=== PATIENT | female | born 1945 | race African-American/Black ===

== ENCOUNTER 2021-08-02 08:35 | Inpatient (IN) | payer OTHER ==
[2021-08-02] MEDS ORDERED: MIDAZOLAM IN 0.9 % SOD.CHLORID 1 MG/1 ML PLAST..BAG ONE (08:42)
[2021-08-02] MEDS ORDERED: MIDAZOLAM HCL 5 MG/1 ML Single Dose Vial IVPUSH ONE ×2 (08:48→09:37)
[2021-08-02] MEDS ORDERED: AMIODARONE IN DEXTROSE,ISO-OSM 360 MG/200 ML BAG IVPB ONE (09:01)
[2021-08-02] MEDS ORDERED: AMIODARONE IN DEXTROSE,ISO-OSM 150 MG/100 ML BAG IVPB ONE (09:15)
[2021-08-02] MEDS ORDERED: SODIUM CHLORIDE 500 ML IV STA ×3 (09:24→11:41)
[2021-08-02] MEDS ORDERED: PIPERACILLIN/TAZOB 3.375 GM 3.375 GM in DEXTROSE 5%-WATER - 50 ML IVPB ONE (09:29)
[2021-08-02 09:30] LABS: BASO % 0.2 % (0-2.0); EOS % 2.1 % (0-4.5); HEMATOCRIT 41.4 % (32.4-45.2); HEMOGLOBIN 12.9 GM/dL (10.7-15.3); LYMPH % 32.4 % (8-40); MCH 30.4 pg (25.7-33.7); MCHC 31.3 g/dl (32.0-36.0); MEAN CELL VOLUME 97.1 fl (80-96); MEAN PLT VOLUME 8.1 fl (7.5-11.1); MONO % 5.6 % (3.8-10.2); NEUT % 59.7 % (42.8-82.8); PLATELET COUNT 366 10^3/uL (134-434); RBC 4.26 M/mm3 (3.60-5.2)
[2021-08-02] MEDS ORDERED: MIDAZOLAM HCL 2 MG/2 ML SINGLE DOSE VIAL ONE (09:38)
[2021-08-02 09:39] LABS: INR 0.97 (0.83-1.09); PROTHROMBIN TIME (PATIENT) 10.9 SEC (9.7-13.0)
[2021-08-02 09:42] LABS: ACTIVATED PTT 24.9 SECONDS (25.2-36.5)
[2021-08-02 09:48] LABS: VENOUS BASE EXCESS -7.7 mmol/L (-2-2); VENOUS O2 SATURATION 86.4 % (70-80)
[2021-08-02 09:53] LABS: CALCIUM 8.3 mg/dL (8.5-10.1)
[2021-08-02 09:54] LABS: ALBUMIN 2.8 g/dl (3.4-5.0); BLOOD UREA NITROGEN 19.3 mg/dL (7-18); MAGNESIUM 3.3 mg/dL (1.8-2.4)
[2021-08-02 09:58] LABS: CREATININE 1.7 mg/dL (0.55-1.3)
[2021-08-02 09:59] LABS: BILIRUBIN,TOTAL 0.5 mg/dL (0.2-1); TOT PROT 7.3 g/dl (6.4-8.2)
[2021-08-02] MEDS ORDERED: LORazepam 2 MG/ML SDV VIAL ONE (10:00)
[2021-08-02] MEDS ORDERED: PROPOFOL 1,000,000 MCG/100 ML VIAL ONE (10:00)
[2021-08-02] MEDS ORDERED: LORazepam 2 MG/ML SDV VIAL IVPUSH ONE (10:03)
[2021-08-02 10:06] LABS: LACTIC ACID 12.9 mmol/L (0.4-2.0)
[2021-08-02 10:15] LABS: VENOUS PH 7.117 (7.310-7.410)
[2021-08-02 10:16] LABS: VENOUS PCO2 73.1 mmHg (38-52)
[2021-08-02 10:19] LABS: ARTERIAL BLD GAS O2 SATURATION 85.2 % (95-98); ARTERIAL BLOOD GAS BASE EXCESS -2.5 mmol/L (-2-2); ARTERIAL BLOOD GAS PO2 57.4 mmHg (80-100); ARTERIAL BLOOD GAS pH 7.263 (7.350-7.450)
[2021-08-02 10:20] LABS: ALLENS TEST POSITIVE
[2021-08-02 10:21] LABS: VENT MODE AC; VENT RATE 22
[2021-08-02] MEDS ORDERED: PIPERACILLIN/TAZOB 3.375 GM 3.375 GM/50 ML BAG IVPB ONE (10:36)
[2021-08-02] MEDS ORDERED: KCL 10 MEQ IVPB 10 MEQ/100 ML INFUS.BAG IVPB ONE ×2 (10:36→11:57)
[2021-08-02] MEDS: KCL 10 MEQ IVPB 10 MEQ/100 ML INFUS.BAG IVPB SCH ×3 (10:40→19:36)
[2021-08-02] MEDS ORDERED: MIDAZOLAM 100 MG in SODIUM CHLORIDE 100 ML IVPB SCH (11:15)
[2021-08-02] MEDS ORDERED: MIDAZOLAM IN 0.9 % SOD.CHLORID 100 MG/100 ML PLAST..BAG IVPB SCH (11:30)
[2021-08-02] MEDS: NOREPINEPHRINE BITARTRATE 16,000 MCG in SODIUM CHLORIDE 484 ML IV SCH (11:40)
[2021-08-02] MEDS: PROPOFOL 1,000,000 MCG/100 ML VIAL IVPB SCH ×2 (12:05→17:10)
[2021-08-02] MEDS ORDERED: fentaNYL CITRATE 250 MCG/5 ML VIAL ONE (13:26)
[2021-08-02] MEDS: FENTANYL NS IVPB 500 MCG/100 ML BAG IVPB SCH ×2 (13:36→17:09)
[2021-08-02] MEDS ORDERED: AMIODARONE IN DEXTROSE,ISO-OSM 360 MG/200 ML BAG IVPB SCH (15:00)
[2021-08-02] MEDS ORDERED: VANCOMYCIN 1 GM in D5W (PRE-DOCKED) 1,000 MG/250 ML IVPB SCH (16:00)
[2021-08-02] MEDS: PIPERACILLIN/TAZOB 3.375 GM 3.375 GM in DEXTROSE 5%-WATER - 50 ML IVPB SCH (16:45)
[2021-08-02] MEDS: SODIUM CHLORIDE 1,000 ML IV SCH (16:45)
[2021-08-02] MEDS ORDERED: PIPERACILLIN/TAZOBACTAM 3.375 GM VIAL IVPB ONE (16:55)
[2021-08-02] MEDS ORDERED: DEXTROSE 5%-WATER - 50 ML IVPB ONE (16:56)
[2021-08-02 19:20] LABS: MAGNESIUM 2.7 mg/dL (1.8-2.4)
[2021-08-02 19:21] LABS: EPI CELLS 24 /uL (0-25.1); HYALINE CASTS 4 /uL (0-3.1); PH,URINE 5.5 (5.0-8.0); URINE APPEARANCE TURBID; URINE BACTERIA 726 /uL (0-1359); URINE BILIRUBIN NEGATIVE (NEGATIVE); URINE COLOR YELLOW; URINE GLUCOSE (UA) TRACE (NEGATIVE); URINE KETONE NEGATIVE (NEGATIVE); URINE LEUK ESTERASE NEGATIVE (NEGATIVE); URINE NITRITE NEGATIVE (NEGATIVE); URINE PROTEIN 3+ (NEGATIVE); URINE UROBILINOGEN 0.2 mg/dL (0.2-1.0)
[2021-08-02 19:24] LABS: PHOSPHOROUS 2.6 mg/dL (2.5-4.9)
[2021-08-02] MEDS ORDERED: RAPID SEQUENCE INTUBATION KIT NR ONE (19:24)
[2021-08-02 20:49] LABS: URINE RBC 34 /uL (0-23.9); URINE WBC 1284 /uL (0-25.8); YEAST FEW (NEGATIVE)
[2021-08-02] MEDS: MUPIROCIN 2% TOPICAL OINTMENT FOR DECOLONIZATION NS SCH (22:13)
[2021-08-02] MEDS: CHLORHEXIDINE GLUCONATE 4% CLEANSER FOR DECOLONIZATION TP SCH (22:14)
[2021-08-02] MEDS: HEPARIN NA (PORCINE) 5,000 UNITS/ML 1ML VIAL SQ SCH (22:14)
[2021-08-03] MEDS ORDERED: PIPERACILLIN/TAZOBACTAM 3.375 GM VIAL IVPB ONE ×2 (00:14→08:43)
[2021-08-03] MEDS ORDERED: DEXTROSE 5%-WATER - 50 ML IVPB ONE ×3 (00:14→16:57)
[2021-08-03] MEDS: PIPERACILLIN/TAZOB 3.375 GM 3.375 GM in DEXTROSE 5%-WATER - 50 ML IVPB SCH ×4 (01:44→19:17)
[2021-08-03] MEDS: HEPARIN NA (PORCINE) 5,000 UNITS/ML 1ML VIAL SQ SCH ×2 (05:59→13:39)
[2021-08-03 06:11] LABS: ARTERIAL BLOOD GAS BASE EXCESS -1.4 mmol/L (-2-2); ARTERIAL BLOOD GAS PO2 71.2 mmHg (80-100); ARTERIAL BLOOD GAS pH 7.375 (7.350-7.450)
[2021-08-03 06:20] LABS: ALLENS TEST POSITIVE
[2021-08-03 06:21] LABS: VENT MODE A/C; VENT RATE 22
[2021-08-03 07:33] LABS: BASO % 0.2 % (0-2.0); EOS % 0.3 % (0-4.5); HEMATOCRIT 36.2 % (32.4-45.2); HEMOGLOBIN 11.7 GM/dL (10.7-15.3); LYMPH % 9.2 % (8-40); MCH 30.5 pg (25.7-33.7); MCHC 32.4 g/dl (32.0-36.0); MEAN PLT VOLUME 8.1 fl (7.5-11.1); MONO % 7.1 % (3.8-10.2); NEUT % 83.2 % (42.8-82.8); PLATELET COUNT 342 10^3/uL (134-434); RBC 3.85 M/mm3 (3.60-5.2); RDW 15.2 % (11.6-15.6); WHITE BLOOD COUNT 16.7 K/mm3 (4.0-10.0)
[2021-08-03 07:44] LABS: CALCIUM 7.8 mg/dL (8.5-10.1)
[2021-08-03 07:45] LABS: ALBUMIN 2.4 g/dl (3.4-5.0); BLOOD UREA NITROGEN 30.1 mg/dL (7-18); MAGNESIUM 2.4 mg/dL (1.8-2.4)
[2021-08-03 07:48] LABS: CREATININE 2.3 mg/dL (0.55-1.3); PHOSPHOROUS 3.1 mg/dL (2.5-4.9)
[2021-08-03 07:50] LABS: BILIRUBIN,TOTAL 0.7 mg/dL (0.2-1)
[2021-08-03 07:52] LABS: TOT PROT 6.4 g/dl (6.4-8.2)
[2021-08-03] MEDS: SODIUM CHLORIDE 1,000 ML IV SCH ×2 (09:25→16:48)
[2021-08-03] MEDS: MUPIROCIN 2% TOPICAL OINTMENT FOR DECOLONIZATION NS SCH ×2 (09:27→22:09)
[2021-08-03] MEDS: FENTANYL NS IVPB 500 MCG/100 ML BAG IVPB SCH ×2 (09:27→13:39)
[2021-08-03] MEDS: PROPOFOL 1,000,000 MCG/100 ML VIAL IVPB SCH ×3 (09:27→13:00)
[2021-08-03] MEDS: PANTOPRAZOLE SODIUM 40 MG VIAL IVPUSH SCH (09:28)
[2021-08-03] MEDS: ASPIRIN 81 MG CHEWABLE TABLETS PO SCH (10:21)
[2021-08-03] MEDS: NOREPINEPHRINE BITARTRATE 16,000 MCG in SODIUM CHLORIDE 484 ML IV SCH ×2 (11:00→13:38)
[2021-08-03] MEDS ORDERED: PT OWN MED DRAWER 7, Y5N ONE (13:08)
[2021-08-03] MEDS ORDERED: POTASSIUM CHLORIDE 20 MEQ PREMIX IVPB 100 ML IVPB ONE (14:12)
[2021-08-03] MEDS: KCL 10 MEQ IVPB 10 MEQ/100 ML INFUS.BAG IVPB SCH ×3 (14:23→17:14)
[2021-08-03] MEDS ORDERED: ALBUTEROL SO4 2.5/IPRATROPIUM 0.5 INH SOL 3 ML VIAL.NEB. NEB ONE (14:55)
[2021-08-03] MEDS ORDERED: SODIUM CHLORIDE 1,000 ML IV STA (16:02)
[2021-08-03] MEDS ORDERED: VASOPRESSIN 20 UNITS/ML VIAL IV ONE (16:29)
[2021-08-03] MEDS ORDERED: MIDAZOLAM IN 0.9 % SOD.CHLORID 1 MG/1 ML PLAST..BAG ONE (16:32)
[2021-08-03] MEDS: MIDAZOLAM IN 0.9 % SOD.CHLORID 100 MG/100 ML PLAST..BAG IVPB SCH (16:48)
[2021-08-03] MEDS ORDERED: PIPERACILLIN/TAZOBACTAM 2.25 GM VIAL IVPB ONE (16:57)
[2021-08-03] MEDS: VASOPRESSIN 40 UNITS in SODIUM CHLORIDE 100 ML IVPB SCH (17:02)
[2021-08-03] MEDS: HYDROCORTISONE SOD SUCCINATE 100 MG/2 ML VIAL IVPUSH SCH ×2 (17:02→22:12)
[2021-08-03] MEDS: FLUDROCORTISONE ACETATE 0.1 MG TABLET (FP) PO SCH (17:03)
[2021-08-03] MEDS: PIPERACILLIN/TAZOB 2.25 GM 2.25 GM in DEXTROSE 5%-WATER - 50 ML IVPB SCH (17:03)
[2021-08-03] MEDS ORDERED: VECURONIUM BROMIDE 100 MG/100 ML BAG IVPB SCH (17:45)
[2021-08-03] MEDS ORDERED: HEPARIN NA (PORCINE) 5,000 UNITS/ML 1ML VIAL IVPUSH PRN ×2 (19:47)
[2021-08-03] MEDS: HEPARIN - 25,000 UNIT in SODIUM CHLORIDE 495 ML IV SCH (22:09)
[2021-08-03] MEDS: CHLORHEXIDINE GLUCONATE 4% CLEANSER FOR DECOLONIZATION TP SCH (22:09)
[2021-08-04] MEDS ORDERED: DEXTROSE 5%-WATER - 50 ML IVPB ONE ×3 (00:47→14:52)
[2021-08-04] MEDS ORDERED: PIPERACILLIN/TAZOBACTAM 2.25 GM VIAL IVPB ONE ×3 (00:47→14:52)
[2021-08-04] MEDS: PIPERACILLIN/TAZOB 2.25 GM 2.25 GM in DEXTROSE 5%-WATER - 50 ML IVPB SCH ×3 (01:38→18:17)
[2021-08-04] MEDS: HYDROCORTISONE SOD SUCCINATE 100 MG/2 ML VIAL IVPUSH SCH ×4 (05:15→21:31)
[2021-08-04] MEDS ORDERED: PT OWN MED DRAWER 7, Y5N ONE (07:15)
[2021-08-04] MEDS: FENTANYL NS IVPB 500 MCG/100 ML BAG IVPB SCH ×2 (09:00→14:00)
[2021-08-04 09:22] LABS: CHLORIDE 114 mmol/L (98-107); SODIUM 146 mmol/L (136-145)
[2021-08-04 09:25] LABS: ALBUMIN 2.2 g/dl (3.4-5.0); ALK PHOS 160 U/L (45-117); ANION GAP 12 MMOL/L (8-16); BILIRUBIN,TOTAL 0.7 mg/dL (0.2-1); BLOOD UREA NITROGEN 39.4 mg/dL (7-18); CALCIUM 7.4 mg/dL (8.5-10.1); CO2 21 mmol/L (21-32); GLUCOSE,RANDOM 159 mg/dL (74-106); MAGNESIUM 2.3 mg/dL (1.8-2.4); PHOSPHOROUS 5.8 mg/dL (2.5-4.9); SGOT/AST 591 U/L (15-37); SGPT/ALT 503 U/L (13-61)
[2021-08-04] MEDS: ASPIRIN 81 MG CHEWABLE TABLETS PO SCH (09:30)
[2021-08-04] MEDS: PANTOPRAZOLE SODIUM 40 MG VIAL IVPUSH SCH (09:31)
[2021-08-04] MEDS: FLUDROCORTISONE ACETATE 0.1 MG TABLET (FP) PO SCH (09:31)
[2021-08-04 09:52] LABS: BASO % 0.1 % (0-2.0); HEMATOCRIT 33.7 % (32.4-45.2); HEMOGLOBIN 10.9 GM/dL (10.7-15.3); LYMPH % 6.9 % (8-40); MCH 30.7 pg (25.7-33.7); MCHC 32.2 g/dl (32.0-36.0); MEAN CELL VOLUME 95.2 fl (80-96); MEAN PLT VOLUME 8.5 fl (7.5-11.1); MONO % 6.7 % (3.8-10.2); NEUT % 86.3 % (42.8-82.8); PLATELET COUNT 302 10^3/uL (134-434); RBC 3.54 M/mm3 (3.60-5.2); RDW 15.8 % (11.6-15.6); WHITE BLOOD COUNT 17.7 K/mm3 (4.0-10.0)
[2021-08-04] MEDS: MUPIROCIN 2% TOPICAL OINTMENT FOR DECOLONIZATION NS SCH ×2 (10:12→21:31)
[2021-08-04] MEDS: NOREPINEPHRINE BITARTRATE 16,000 MCG in SODIUM CHLORIDE 484 ML IV SCH (11:30)
[2021-08-04] MEDS: VECURONIUM BROMIDE 100 MG/100 ML BAG IVPB SCH (14:04)
[2021-08-04] MEDS: SODIUM CHLORIDE 1,000 ML IV SCH (16:30)
[2021-08-04] MEDS: MIDAZOLAM IN 0.9 % SOD.CHLORID 100 MG/100 ML PLAST..BAG IVPB SCH (18:16)
[2021-08-04] MEDS: VASOPRESSIN 40 UNITS in SODIUM CHLORIDE 100 ML IVPB SCH (18:17)
[2021-08-04] MEDS: CHLORHEXIDINE GLUCONATE 4% CLEANSER FOR DECOLONIZATION TP SCH (21:19)
[2021-08-04] MEDS: HEPARIN - 25,000 UNIT in SODIUM CHLORIDE 495 ML IV SCH (22:00)
[2021-08-05] MEDS ORDERED: DEXTROSE 5%-WATER - 50 ML IVPB ONE ×3 (01:21→18:09)
[2021-08-05] MEDS ORDERED: PIPERACILLIN/TAZOBACTAM 2.25 GM VIAL IVPB ONE ×3 (01:21→18:09)
[2021-08-05] MEDS: FENTANYL NS IVPB 500 MCG/100 ML BAG IVPB SCH ×4 (02:00→19:15)
[2021-08-05] MEDS: PIPERACILLIN/TAZOB 2.25 GM 2.25 GM in DEXTROSE 5%-WATER - 50 ML IVPB SCH ×3 (02:43→18:11)
[2021-08-05] MEDS: HYDROCORTISONE SOD SUCCINATE 100 MG/2 ML VIAL IVPUSH SCH ×2 (05:21→09:38)
[2021-08-05] MEDS: MIDAZOLAM IN 0.9 % SOD.CHLORID 100 MG/100 ML PLAST..BAG IVPB SCH (05:23)
[2021-08-05] MEDS: SODIUM CHLORIDE 1,000 ML IV SCH (05:23)
[2021-08-05] MEDS: VECURONIUM BROMIDE 100 MG/100 ML BAG IVPB SCH (06:04)
[2021-08-05 07:45] LABS: BASO % 0.2 % (0-2.0); HEMATOCRIT 31.8 % (32.4-45.2); HEMOGLOBIN 10.2 GM/dL (10.7-15.3); LYMPH % 6.6 % (8-40); MCH 30.4 pg (25.7-33.7); MCHC 32.1 g/dl (32.0-36.0); MEAN CELL VOLUME 94.8 fl (80-96); MEAN PLT VOLUME 8.6 fl (7.5-11.1); MONO % 6.2 % (3.8-10.2); PLATELET COUNT 278 10^3/uL (134-434); RBC 3.35 M/mm3 (3.60-5.2); RDW 15.4 % (11.6-15.6); WHITE BLOOD COUNT 16.1 K/mm3 (4.0-10.0)
[2021-08-05 08:03] LABS: CHLORIDE 116 mmol/L (98-107); SODIUM 147 mmol/L (136-145)
[2021-08-05 08:04] LABS: CALCIUM 7.4 mg/dL (8.5-10.1)
[2021-08-05 08:05] LABS: ANION GAP 8 MMOL/L (8-16); BLOOD UREA NITROGEN 51.5 mg/dL (7-18); CO2 24 mmol/L (21-32); GLUCOSE,RANDOM 144 mg/dL (74-106)
[2021-08-05 08:06] LABS: MAGNESIUM 2.3 mg/dL (1.8-2.4)
[2021-08-05 08:08] LABS: PHOSPHOROUS 4.6 mg/dL (2.5-4.9); SGOT/AST 224 U/L (15-37); SGPT/ALT 427 U/L (13-61)
[2021-08-05 08:09] LABS: BILIRUBIN,TOTAL 0.5 mg/dL (0.2-1)
[2021-08-05 08:10] LABS: ALK PHOS 136 U/L (45-117); TOT PROT 5.6 g/dl (6.4-8.2)
[2021-08-05] MEDS ORDERED: FUROSEMIDE 40 MG/4 ML INJECTABLE VIAL IVPUSH ONE (08:50)
[2021-08-05] MEDS: FLUDROCORTISONE ACETATE 0.1 MG TABLET (FP) PO SCH (09:37)
[2021-08-05] MEDS: ASPIRIN 81 MG CHEWABLE TABLETS PO SCH (09:37)
[2021-08-05] MEDS: PANTOPRAZOLE SODIUM 40 MG VIAL IVPUSH SCH (09:38)
[2021-08-05] MEDS: MUPIROCIN 2% TOPICAL OINTMENT FOR DECOLONIZATION NS SCH ×2 (09:40→21:53)
[2021-08-05] MEDS: HEPARIN - 25,000 UNIT in SODIUM CHLORIDE 495 ML IV SCH (19:10)
[2021-08-05] MEDS: CHLORHEXIDINE GLUCONATE 4% CLEANSER FOR DECOLONIZATION TP SCH (21:53)
[2021-08-06] MEDS: FENTANYL NS IVPB 500 MCG/100 ML BAG IVPB SCH ×4 (01:05→19:15)
[2021-08-06] MEDS ORDERED: PIPERACILLIN/TAZOBACTAM 2.25 GM VIAL IVPB ONE ×4 (01:16→23:58)
[2021-08-06] MEDS ORDERED: DEXTROSE 5%-WATER - 50 ML IVPB ONE ×4 (01:16→23:58)
[2021-08-06] MEDS: PIPERACILLIN/TAZOB 2.25 GM 2.25 GM in DEXTROSE 5%-WATER - 50 ML IVPB SCH ×3 (01:44→18:20)
[2021-08-06 06:35] LABS: ARTERIAL BLD GAS O2 SATURATION 90.5 % (95-98); ARTERIAL BLOOD GAS BASE EXCESS -5.1 mmol/L (-2-2); ARTERIAL BLOOD GAS pH 7.265 (7.350-7.450)
[2021-08-06 06:37] LABS: ALLENS TEST POSITIVE; VENT MODE A/C; VENT RATE 16
[2021-08-06 08:54] LABS: BASO % 0.3 % (0-2.0); EOS % 0.1 % (0-4.5); HEMATOCRIT 31.9 % (32.4-45.2); HEMOGLOBIN 10.4 GM/dL (10.7-15.3); LYMPH % 4.2 % (8-40); MCH 30.7 pg (25.7-33.7); MCHC 32.7 g/dl (32.0-36.0); MEAN CELL VOLUME 93.8 fl (80-96); MEAN PLT VOLUME 8.1 fl (7.5-11.1); MONO % 8.4 % (3.8-10.2); PLATELET COUNT 274 10^3/uL (134-434); RDW 15.7 % (11.6-15.6); WHITE BLOOD COUNT 14.1 K/mm3 (4.0-10.0)
[2021-08-06] MEDS: PANTOPRAZOLE SODIUM 40 MG VIAL IVPUSH SCH (09:08)
[2021-08-06] MEDS: LORazepam 2 MG/ML SDV VIAL IVPUSH PRN ×2 (09:08→13:52)
[2021-08-06] MEDS: MUPIROCIN 2% TOPICAL OINTMENT FOR DECOLONIZATION NS SCH ×2 (09:08→21:17)
[2021-08-06] MEDS: ASPIRIN 81 MG CHEWABLE TABLETS PO SCH (09:08)
[2021-08-06] MEDS: HEPARIN - 25,000 UNIT in SODIUM CHLORIDE 495 ML IV SCH (09:08)
[2021-08-06 09:10] LABS: CHLORIDE 116 mmol/L (98-107); SODIUM 148 mmol/L (136-145)
[2021-08-06 09:17] LABS: BLOOD UREA NITROGEN 59.8 mg/dL (7-18); CALCIUM 7.3 mg/dL (8.5-10.1)
[2021-08-06 09:18] LABS: ANION GAP 9 MMOL/L (8-16); CO2 23 mmol/L (21-32); GLUCOSE,RANDOM 118 mg/dL (74-106)
[2021-08-06 09:21] LABS: PHOSPHOROUS 5.7 mg/dL (2.5-4.9); SGOT/AST 98 U/L (15-37); SGPT/ALT 318 U/L (13-61)
[2021-08-06 09:22] LABS: BILIRUBIN,TOTAL 0.4 mg/dL (0.2-1)
[2021-08-06 09:23] LABS: TOT PROT 6.1 g/dl (6.4-8.2)
[2021-08-06 09:24] LABS: ALK PHOS 134 U/L (45-117)
[2021-08-06] MEDS: DEXMEDETOMIDINE IN 0.9 % NACL 400 MCG/100 ML VIAL IVPB SCH (11:14)
[2021-08-06] MEDS: CHLORHEXIDINE GLUCONATE 4% CLEANSER FOR DECOLONIZATION TP SCH (21:17)
[2021-08-06] MEDS ORDERED: PT OWN MED DRAWER 7, Y5N ONE (23:57)
[2021-08-07] MEDS: FENTANYL NS IVPB 500 MCG/100 ML BAG IVPB SCH ×4 (00:05→19:15)
[2021-08-07] MEDS ORDERED: PT OWN MED DRAWER 7, Y5N ONE ×3 (02:25→09:21)
[2021-08-07] MEDS: PIPERACILLIN/TAZOB 2.25 GM 2.25 GM in DEXTROSE 5%-WATER - 50 ML IVPB SCH ×3 (02:29→17:41)
[2021-08-07] MEDS: DEXMEDETOMIDINE IN 0.9 % NACL 400 MCG/100 ML VIAL IVPB SCH ×3 (04:00→15:07)
[2021-08-07 05:40] LABS: BASO % 0.1 % (0-2.0); EOS % 0.9 % (0-4.5); HEMATOCRIT 32.1 % (32.4-45.2); HEMOGLOBIN 10.4 GM/dL (10.7-15.3); LYMPH % 6.9 % (8-40); MCH 30.8 pg (25.7-33.7); MCHC 32.6 g/dl (32.0-36.0); MEAN CELL VOLUME 94.5 fl (80-96); MEAN PLT VOLUME 8.2 fl (7.5-11.1); MONO % 9.3 % (3.8-10.2); NEUT % 82.8 % (42.8-82.8); PLATELET COUNT 258 10^3/uL (134-434); RBC 3.39 M/mm3 (3.60-5.2); RDW 15.8 % (11.6-15.6); WHITE BLOOD COUNT 10.3 K/mm3 (4.0-10.0)
[2021-08-07 05:59] LABS: CALCIUM 7.3 mg/dL (8.5-10.1)
[2021-08-07 06:00] LABS: ALBUMIN 1.8 g/dl (3.4-5.0)
[2021-08-07 06:03] LABS: CREATININE 2.9 mg/dL (0.55-1.3); PHOSPHOROUS 4.6 mg/dL (2.5-4.9)
[2021-08-07 06:05] LABS: TOT PROT 5.8 g/dl (6.4-8.2)
[2021-08-07 08:05] LABS: BILIRUBIN,TOTAL 0.4 mg/dL (0.2-1)
[2021-08-07] MEDS ORDERED: PIPERACILLIN/TAZOBACTAM 2.25 GM VIAL IVPB ONE ×2 (09:21→17:14)
[2021-08-07] MEDS ORDERED: DEXTROSE 5%-WATER - 50 ML IVPB ONE ×2 (09:22→17:14)
[2021-08-07] MEDS: ASPIRIN 81 MG CHEWABLE TABLETS PO SCH (09:28)
[2021-08-07] MEDS: MUPIROCIN 2% TOPICAL OINTMENT FOR DECOLONIZATION NS SCH (09:28)
[2021-08-07] MEDS: PANTOPRAZOLE SODIUM 40 MG VIAL IVPUSH SCH (09:28)
[2021-08-07] MEDS ORDERED: HEPARIN NA (PORCINE) 5,000 UNITS/ML 1ML VIAL IVPUSH PRN (09:30)
[2021-08-07] MEDS: HEPARIN INFUSION - 25,000 UNITS/500 ML INFUS.BAG IVPB SCH (09:38)
[2021-08-07] MEDS ORDERED: PROPOFOL 1,000,000 MCG/100 ML VIAL ONE (09:51)
[2021-08-07] MEDS ORDERED: SODIUM CHLORIDE 0.45% 1,000 ML IV SCH (11:15)
[2021-08-07] MEDS ORDERED: LACTATED RINGERS SOLUTION 1000 ML INFUS.BAG IV ONE (11:16)
[2021-08-07] MEDS ORDERED: NOREPINEPHRINE D5W PREMIX 16,000 MCG/500 ML BAG IVPB SCH (11:30)
[2021-08-07] MEDS: POLYETHYLENE GLYCOL (HEALTHYLAX) 3350 17 GM PACKET GT SCH ×2 (11:57→21:28)
[2021-08-07] MEDS: NOREPINEPHRINE BITARTRATE 16,000 MCG in SODIUM CHLORIDE 484 ML IV SCH (12:10)
[2021-08-07 12:37] VITALS: BMI 41.8
[2021-08-07] MEDS: AMINO ACIDS/PROTEIN HYDROLYS 30 ML LIQUID.PKT NGT SCH (17:40)
[2021-08-07] MEDS: CHLORHEXIDINE GLUCONATE 4% CLEANSER FOR DECOLONIZATION TP SCH (21:28)
[2021-08-07] MEDS: LORazepam 2 MG/ML SDV VIAL IVPUSH PRN (21:29)
[2021-08-07] MEDS ORDERED: PROPOFOL 1,000,000 MCG/100 ML VIAL IVPB SCH (23:45)
[2021-08-08] MEDS ORDERED: PIPERACILLIN/TAZOBACTAM 2.25 GM VIAL IVPB ONE ×3 (00:43→15:59)
[2021-08-08] MEDS ORDERED: DEXTROSE 5%-WATER - 50 ML IVPB ONE ×3 (00:44→15:59)
[2021-08-08] MEDS: PIPERACILLIN/TAZOB 2.25 GM 2.25 GM in DEXTROSE 5%-WATER - 50 ML IVPB SCH ×3 (02:08→17:09)
[2021-08-08 06:03] LABS: HEMATOCRIT 31.1 % (32.4-45.2); HEMOGLOBIN 10.1 GM/dL (10.7-15.3); MCH 30.8 pg (25.7-33.7); MCHC 32.3 g/dl (32.0-36.0); MEAN CELL VOLUME 95.3 fl (80-96); MEAN PLT VOLUME 8.8 fl (7.5-11.1); PLATELET COUNT 267 10^3/uL (134-434); RBC 3.27 M/mm3 (3.60-5.2); RDW 16.1 % (11.6-15.6); WHITE BLOOD COUNT 10.7 K/mm3 (4.0-10.0)
[2021-08-08 06:24] LABS: ALBUMIN 1.8 g/dl (3.4-5.0); BLOOD UREA NITROGEN 62.9 mg/dL (7-18)
[2021-08-08 06:27] LABS: CREATININE 2.5 mg/dL (0.55-1.3)
[2021-08-08 06:28] LABS: BILIRUBIN,TOTAL 0.4 mg/dL (0.2-1); TOT PROT 6.6 g/dl (6.4-8.2)
[2021-08-08] MEDS ORDERED: PROPOFOL 1,000,000 MCG/100 ML VIAL ONE (07:43)
[2021-08-08] MEDS ORDERED: FENTANYL NS IVPB 500 MCG/100 ML BAG IVPB ONE (08:07)
[2021-08-08] MEDS: FENTANYL NS IVPB 500 MCG/100 ML BAG IVPB SCH ×3 (08:10→17:42)
[2021-08-08] MEDS: PANTOPRAZOLE SODIUM 40 MG VIAL IVPUSH SCH (09:01)
[2021-08-08] MEDS: PROPOFOL 1,000,000 MCG/100 ML VIAL IVPB SCH ×2 (09:30→12:30)
[2021-08-08] MEDS ORDERED: FUROSEMIDE 40 MG/4 ML INJECTABLE VIAL IVPUSH ONE (10:29)
[2021-08-08] MEDS: DEXMEDETOMIDINE IN 0.9 % NACL 400 MCG/100 ML VIAL IVPB SCH ×2 (10:35→17:06)
[2021-08-08] MEDS ORDERED: ACETAMINOPHEN 1000 MG/100 ML BAG IVPB ONE (11:53)
[2021-08-08 13:05] LABS: ARTERIAL BLD GAS O2 SATURATION 84.3 % (95-98); ARTERIAL BLOOD GAS BASE EXCESS -10.4 mmol/L (-2-2); ARTERIAL BLOOD GAS PO2 58.7 mmHg (80-100)
[2021-08-08] MEDS: POLYETHYLENE GLYCOL (HEALTHYLAX) 3350 17 GM PACKET GT SCH ×2 (13:07→21:40)
[2021-08-08 13:08] LABS: ALLENS TEST POSITIVE; VENT MODE AC; VENT RATE 20
[2021-08-08 13:10] LABS: ARTERIAL BLOOD GAS pH 7.199 (7.350-7.450)
[2021-08-08] MEDS ORDERED: fentaNYL CITRATE 250 MCG/5 ML VIAL ONE ×2 (13:25→17:34)
[2021-08-08] MEDS: HEPARIN INFUSION - 25,000 UNITS/500 ML INFUS.BAG IVPB SCH (13:34)
[2021-08-08] MEDS: NOREPINEPHRINE BITARTRATE 16,000 MCG in SODIUM CHLORIDE 484 ML IV SCH (13:36)
[2021-08-08] MEDS: AMINO ACIDS/PROTEIN HYDROLYS 30 ML LIQUID.PKT NGT SCH ×2 (13:38→17:09)
[2021-08-08] MEDS: ASPIRIN 81 MG CHEWABLE TABLETS PO SCH (13:59)
[2021-08-08 14:31] LABS: EPI CELLS 16 /uL (0-25.1); HYALINE CASTS 3 /uL (0-3.1); URINE APPEARANCE CLOUDY; URINE BACTERIA 7 /uL (0-1359); URINE BILIRUBIN NEGATIVE (NEGATIVE); URINE COLOR YELLOW; URINE GLUCOSE (UA) NEGATIVE (NEGATIVE); URINE KETONE NEGATIVE (NEGATIVE); URINE LEUK ESTERASE 1+ (NEGATIVE); URINE NITRITE NEGATIVE (NEGATIVE); URINE PROTEIN 1+ (NEGATIVE); URINE UROBILINOGEN 0.2 mg/dL (0.2-1.0); URINE WBC 67 /uL (0-25.8)
[2021-08-08 15:55] LABS: URINE RBC 60.2 /uL (0-23.9)
[2021-08-08] MEDS ORDERED: PT OWN MED DRAWER 7, Y5N ONE (15:59)
[2021-08-08] MEDS: CHLORHEXIDINE GLUCONATE 4% CLEANSER FOR DECOLONIZATION TP SCH (21:40)
[2021-08-09] MEDS ORDERED: PIPERACILLIN/TAZOBACTAM 2.25 GM VIAL IVPB ONE ×3 (01:04→15:27)
[2021-08-09] MEDS ORDERED: DEXTROSE 5%-WATER - 50 ML IVPB ONE ×3 (01:05→15:28)
[2021-08-09] MEDS: PIPERACILLIN/TAZOB 2.25 GM 2.25 GM in DEXTROSE 5%-WATER - 50 ML IVPB SCH ×3 (02:24→17:44)
[2021-08-09] MEDS ORDERED: ACETYLCYSTEINE 20% 200MG/ML 4 ML VIAL *FOR ORAL / INH USE ONLY ONE (07:12)
[2021-08-09] MEDS: ACETYLCYSTEINE 20% 200MG/ML 4 ML VIAL *FOR ORAL / INH USE ONLY NEB SCH ×4 (07:23→20:00)
[2021-08-09] MEDS: ALBUTEROL SO4 0.083% IH SOL 2.5 MG/3 ML VIAL.NEB. NEB PRN ×5 (07:23→20:00)
[2021-08-09 09:00] LABS: HEMATOCRIT 30.7 % (32.4-45.2); MCH 31.4 pg (25.7-33.7); MCHC 32.8 g/dl (32.0-36.0); MEAN CELL VOLUME 95.7 fl (80-96); MEAN PLT VOLUME 8.7 fl (7.5-11.1); PLATELET COUNT 280 10^3/uL (134-434); RDW 15.8 % (11.6-15.6); WHITE BLOOD COUNT 10.3 K/mm3 (4.0-10.0)
[2021-08-09] MEDS: FENTANYL NS IVPB 500 MCG/100 ML BAG IVPB SCH ×3 (09:05→20:30)
[2021-08-09] MEDS: PANTOPRAZOLE SODIUM 40 MG VIAL IVPUSH SCH (09:11)
[2021-08-09 09:13] LABS: CALCIUM 8.2 mg/dL (8.5-10.1)
[2021-08-09 09:14] LABS: ALBUMIN 1.7 g/dl (3.4-5.0); BLOOD UREA NITROGEN 58.8 mg/dL (7-18)
[2021-08-09 09:17] LABS: CREATININE 2.6 mg/dL (0.55-1.3)
[2021-08-09] MEDS: PROPOFOL 1,000,000 MCG/100 ML VIAL IVPB SCH ×4 (09:18→21:16)
[2021-08-09 09:19] LABS: BILIRUBIN,TOTAL 0.6 mg/dL (0.2-1); TOT PROT 5.8 g/dl (6.4-8.2)
[2021-08-09] MEDS: AMINO ACIDS/PROTEIN HYDROLYS 30 ML LIQUID.PKT NGT SCH ×2 (09:19→18:10)
[2021-08-09] MEDS: HEPARIN NA (PORCINE) 5,000 UNITS/ML 1ML VIAL IVPUSH PRN (09:29)
[2021-08-09] MEDS ORDERED: FUROSEMIDE 40 MG/4 ML INJECTABLE VIAL IVPUSH ONE (10:06)
[2021-08-09] MEDS ORDERED: ACETAMINOPHEN 1000 MG/100 ML BAG IVPB ONE (10:29)
[2021-08-09] MEDS: ASPIRIN 81 MG CHEWABLE TABLETS PO SCH (11:25)
[2021-08-09] MEDS: POLYETHYLENE GLYCOL (HEALTHYLAX) 3350 17 GM PACKET GT SCH ×2 (11:25→21:15)
[2021-08-09 11:35] LABS: ARTERIAL BLD GAS O2 SATURATION 80.9 % (95-98); ARTERIAL BLOOD GAS BASE EXCESS -7.1 mmol/L (-2-2); ARTERIAL BLOOD GAS PO2 55.8 mmHg (80-100)
[2021-08-09 11:38] LABS: ARTERIAL BLOOD GAS pH 7.183 (7.350-7.450)
[2021-08-09] MEDS: DEXMEDETOMIDINE IN 0.9 % NACL 400 MCG/100 ML VIAL IVPB SCH ×2 (12:47→21:16)
[2021-08-09] MEDS ORDERED: PT OWN MED DRAWER 7, Y5N ONE (18:23)
[2021-08-09] MEDS: NOREPINEPHRINE BITARTRATE 16,000 MCG in SODIUM CHLORIDE 484 ML IV SCH (18:28)
[2021-08-09] MEDS: HEPARIN INFUSION - 25,000 UNITS/500 ML INFUS.BAG IVPB SCH (18:56)
[2021-08-09] MEDS: CHLORHEXIDINE GLUCONATE 4% CLEANSER FOR DECOLONIZATION TP SCH (21:15)
[2021-08-10] MEDS: FENTANYL NS IVPB 500 MCG/100 ML BAG IVPB SCH ×3 (02:00→18:02)
[2021-08-10] MEDS: PROPOFOL 1,000,000 MCG/100 ML VIAL IVPB SCH ×3 (02:00→22:00)
[2021-08-10 07:27] LABS: HEMATOCRIT 32.3 % (32.4-45.2); HEMOGLOBIN 10.3 GM/dL (10.7-15.3); MCH 30.5 pg (25.7-33.7); MCHC 32.1 g/dl (32.0-36.0); MEAN CELL VOLUME 95.3 fl (80-96); MEAN PLT VOLUME 8.9 fl (7.5-11.1); PLATELET COUNT 309 10^3/uL (134-434); RBC 3.39 M/mm3 (3.60-5.2); WHITE BLOOD COUNT 12.9 K/mm3 (4.0-10.0)
[2021-08-10] MEDS: ACETYLCYSTEINE 20% 200MG/ML 4 ML VIAL *FOR ORAL / INH USE ONLY NEB SCH ×4 (07:45→20:10)
[2021-08-10] MEDS: ALBUTEROL SO4 0.083% IH SOL 2.5 MG/3 ML VIAL.NEB. NEB PRN ×4 (07:45→20:10)
[2021-08-10] MEDS ORDERED: PT OWN MED DRAWER 7, Y5N ONE ×2 (07:52→17:19)
[2021-08-10] MEDS: AMINO ACIDS/PROTEIN HYDROLYS 30 ML LIQUID.PKT NGT SCH ×2 (08:24→16:33)
[2021-08-10 08:44] LABS: ALBUMIN 1.6 g/dl (3.4-5.0); BILIRUBIN,TOTAL 0.4 mg/dL (0.2-1); BLOOD UREA NITROGEN 54.1 mg/dL (7-18); CALCIUM 7.9 mg/dL (8.5-10.1); CREATININE 2.6 mg/dL (0.55-1.3); MAGNESIUM 1.8 mg/dL (1.8-2.4); TOT PROT 5.9 g/dl (6.4-8.2)
[2021-08-10] MEDS: PANTOPRAZOLE SODIUM 40 MG VIAL IVPUSH SCH (10:55)
[2021-08-10] MEDS ORDERED: MAGNESIUM 2GM/50ML STERILE WATER IVPB IVPB ONE (10:55)
[2021-08-10] MEDS: POLYETHYLENE GLYCOL (HEALTHYLAX) 3350 17 GM PACKET GT SCH ×2 (10:55→21:45)
[2021-08-10] MEDS: ASPIRIN 81 MG CHEWABLE TABLETS PO SCH (10:55)
[2021-08-10] MEDS: KCL 10 MEQ IVPB 10 MEQ/100 ML INFUS.BAG IVPB SCH ×2 (11:55→17:09)
[2021-08-10] MEDS: FUROSEMIDE 40 MG/4 ML INJECTABLE VIAL IVPUSH SCH ×2 (11:55→17:34)
[2021-08-10] MEDS: DEXMEDETOMIDINE IN 0.9 % NACL 400 MCG/100 ML VIAL IVPB SCH ×2 (12:16→19:50)
[2021-08-10 14:26] LABS: INR 1.24 (0.83-1.09); PROTHROMBIN TIME (PATIENT) 13.9 SEC (9.7-13.0)
[2021-08-10 14:29] LABS: ACTIVATED PTT 51.8 SECONDS (25.2-36.5)
[2021-08-10] MEDS: POTASSIUM CHLORIDE 20 MEQ PREMIX IVPB 100 ML IVPB SCH ×3 (15:02→18:19)
[2021-08-10 15:16] LABS: ARTERIAL BLD GAS O2 SATURATION 70.6 % (95-98); ARTERIAL BLOOD GAS BASE EXCESS -6.4 mmol/L (-2-2)
[2021-08-10 15:19] LABS: ARTERIAL BLOOD GAS pH 7.167 (7.350-7.450)
[2021-08-10] MEDS: HEPARIN INFUSION - 25,000 UNITS/500 ML INFUS.BAG IVPB SCH (19:15)
[2021-08-10] MEDS: NOREPINEPHRINE BITARTRATE 16,000 MCG in SODIUM CHLORIDE 484 ML IV SCH (21:00)
[2021-08-10] MEDS: CHLORHEXIDINE GLUCONATE 4% CLEANSER FOR DECOLONIZATION TP SCH (21:45)
[2021-08-10 22:08] LABS: BLOOD UREA NITROGEN 49.4 mg/dL (7-18); CREATININE 2.3 mg/dL (0.55-1.3)
[2021-08-11 06:17] LABS: ARTERIAL BLD GAS O2 SATURATION 87.4 % (95-98); ARTERIAL BLOOD GAS BASE EXCESS -2.8 mmol/L (-2-2); ARTERIAL BLOOD GAS PO2 60.3 mmHg (80-100); ARTERIAL BLOOD GAS pH 7.274 (7.350-7.450)
[2021-08-11 06:20] LABS: VENT MODE V-A/C
[2021-08-11 06:21] LABS: VENT RATE 28
[2021-08-11 06:57] LABS: HEMATOCRIT 31.7 % (32.4-45.2); HEMOGLOBIN 10.1 GM/dL (10.7-15.3); MCH 30.2 pg (25.7-33.7); MEAN CELL VOLUME 94.4 fl (80-96); MEAN PLT VOLUME 8.7 fl (7.5-11.1); PLATELET COUNT 370 10^3/uL (134-434); RBC 3.36 M/mm3 (3.60-5.2); RDW 16.4 % (11.6-15.6); WHITE BLOOD COUNT 11.8 K/mm3 (4.0-10.0)
[2021-08-11 07:14] LABS: CALCIUM 8.2 mg/dL (8.5-10.1)
[2021-08-11 07:15] LABS: ALBUMIN 1.6 g/dl (3.4-5.0); BLOOD UREA NITROGEN 45.9 mg/dL (7-18); MAGNESIUM 1.9 mg/dL (1.8-2.4)
[2021-08-11 07:17] LABS: PHOSPHOROUS 4.6 mg/dL (2.5-4.9)
[2021-08-11 07:19] LABS: BILIRUBIN,TOTAL 0.5 mg/dL (0.2-1)
[2021-08-11] MEDS: FENTANYL NS IVPB 500 MCG/100 ML BAG IVPB SCH ×4 (07:30→17:36)
[2021-08-11] MEDS: ACETYLCYSTEINE 20% 200MG/ML 4 ML VIAL *FOR ORAL / INH USE ONLY NEB SCH ×4 (07:30→20:35)
[2021-08-11] MEDS: ALBUTEROL SO4 0.083% IH SOL 2.5 MG/3 ML VIAL.NEB. NEB PRN ×4 (07:30→20:35)
[2021-08-11] MEDS: PROPOFOL 1,000,000 MCG/100 ML VIAL IVPB SCH ×4 (07:30→17:36)
[2021-08-11] MEDS ORDERED: MAGNESIUM 2GM/50ML STERILE WATER IVPB IVPB ONE (08:30)
[2021-08-11] MEDS: PIPERACILLIN/TAZOB 2.25 GM 2.25 GM in DEXTROSE 5%-WATER - 50 ML IVPB SCH ×2 (08:44→17:35)
[2021-08-11] MEDS: AMINO ACIDS/PROTEIN HYDROLYS 30 ML LIQUID.PKT NGT SCH ×2 (08:44→16:39)
[2021-08-11] MEDS ORDERED: PIPERACILLIN/TAZOBACTAM 2.25 GM VIAL IVPB ONE ×2 (09:05→17:49)
[2021-08-11] MEDS ORDERED: DEXTROSE 5%-WATER - 50 ML IVPB ONE ×2 (09:05→17:49)
[2021-08-11] MEDS: POTASSIUM CHLORIDE 20 MEQ PREMIX IVPB 100 ML IVPB SCH ×2 (09:12→10:29)
[2021-08-11] MEDS: PANTOPRAZOLE SODIUM 40 MG VIAL IVPUSH SCH (09:13)
[2021-08-11] MEDS: POLYETHYLENE GLYCOL (HEALTHYLAX) 3350 17 GM PACKET GT SCH ×2 (09:13→21:46)
[2021-08-11] MEDS: ASPIRIN 81 MG CHEWABLE TABLETS PO SCH (09:13)
[2021-08-11 09:35] LABS: ANISOCYTOSIS 1+; MACROCYTOSIS 0; PLATELET ESTIMATE NORMAL
[2021-08-11] MEDS ORDERED: ALBUMIN HUMAN 25% 12.5 GM/50 ML VIAL IVPB SCH (10:30)
[2021-08-11] MEDS ORDERED: ALBUMIN HUMAN 25% 100 ML VIAL IVPB ONE (11:00)
[2021-08-11] MEDS: DEXMEDETOMIDINE IN 0.9 % NACL 400 MCG/100 ML VIAL IVPB SCH (11:00)
[2021-08-11] MEDS: FUROSEMIDE 40 MG/4 ML INJECTABLE VIAL IVPUSH SCH ×2 (12:55→21:46)
[2021-08-11] MEDS: NOREPINEPHRINE BITARTRATE 16,000 MCG in SODIUM CHLORIDE 484 ML IV SCH ×3 (13:42→17:36)
[2021-08-11 14:21] LABS: BLOOD UREA NITROGEN 43.3 mg/dL (7-18); CALCIUM 8.3 mg/dL (8.5-10.1)
[2021-08-11 14:25] LABS: CREATININE 1.9 mg/dL (0.55-1.3)
[2021-08-11] MEDS: HEPARIN INFUSION - 25,000 UNITS/500 ML INFUS.BAG IVPB SCH (16:38)
[2021-08-11] MEDS ORDERED: POTASSIUM CHLORIDE 20 MEQ PREMIX IVPB 100 ML IVPB ONE (17:05)
[2021-08-11] MEDS: CHLORHEXIDINE GLUCONATE 4% CLEANSER FOR DECOLONIZATION TP SCH (21:46)
[2021-08-11] MEDS ORDERED: FUROSEMIDE 40 MG/4 ML INJECTABLE VIAL IVPUSH SCH (22:00)
[2021-08-12] MEDS ORDERED: DEXTROSE 5%-WATER - 50 ML IVPB ONE ×3 (00:27→18:26)
[2021-08-12] MEDS ORDERED: PIPERACILLIN/TAZOBACTAM 2.25 GM VIAL IVPB ONE ×3 (00:27→18:25)
[2021-08-12] MEDS: PIPERACILLIN/TAZOB 2.25 GM 2.25 GM in DEXTROSE 5%-WATER - 50 ML IVPB SCH ×3 (02:09→18:15)
[2021-08-12] MEDS: HEPARIN INFUSION - 25,000 UNITS/500 ML INFUS.BAG IVPB SCH ×2 (05:54→09:30)
[2021-08-12] MEDS: FENTANYL NS IVPB 500 MCG/100 ML BAG IVPB SCH ×3 (07:25→21:00)
[2021-08-12] MEDS: AMINO ACIDS/PROTEIN HYDROLYS 30 ML LIQUID.PKT NGT SCH ×2 (07:29→17:53)
[2021-08-12] MEDS: ALBUTEROL SO4 0.083% IH SOL 2.5 MG/3 ML VIAL.NEB. NEB PRN ×4 (07:30→20:10)
[2021-08-12] MEDS: ACETYLCYSTEINE 20% 200MG/ML 4 ML VIAL *FOR ORAL / INH USE ONLY NEB SCH ×4 (07:30→20:10)
[2021-08-12 07:44] LABS: CALCIUM 8.4 mg/dL (8.5-10.1)
[2021-08-12 07:45] LABS: ALBUMIN 1.7 g/dl (3.4-5.0); BLOOD UREA NITROGEN 39.3 mg/dL (7-18); MAGNESIUM 1.8 mg/dL (1.8-2.4)
[2021-08-12 07:48] LABS: CREATININE 1.8 mg/dL (0.55-1.3); PHOSPHOROUS 3.9 mg/dL (2.5-4.9)
[2021-08-12 07:49] LABS: BILIRUBIN,TOTAL 0.8 mg/dL (0.2-1); TOT PROT 5.9 g/dl (6.4-8.2)
[2021-08-12 08:08] LABS: HEMATOCRIT 29.3 % (32.4-45.2); HEMOGLOBIN 9.7 GM/dL (10.7-15.3); MCH 30.8 pg (25.7-33.7); MCHC 33.1 g/dl (32.0-36.0); MEAN CELL VOLUME 93.2 fl (80-96); MEAN PLT VOLUME 8.4 fl (7.5-11.1); PLATELET COUNT 371 10^3/uL (134-434); RBC 3.14 M/mm3 (3.60-5.2); RDW 16.4 % (11.6-15.6); WHITE BLOOD COUNT 12.1 K/mm3 (4.0-10.0)
[2021-08-12 08:58] LABS: ANISOCYTOSIS 1+; MACROCYTOSIS 1+; PLATELET ESTIMATE NORMAL
[2021-08-12] MEDS: POLYETHYLENE GLYCOL (HEALTHYLAX) 3350 17 GM PACKET GT SCH ×2 (09:08→22:11)
[2021-08-12] MEDS: PANTOPRAZOLE SODIUM 40 MG VIAL IVPUSH SCH (09:08)
[2021-08-12] MEDS: ASPIRIN 81 MG CHEWABLE TABLETS PO SCH (09:08)
[2021-08-12] MEDS: PROPOFOL 1,000,000 MCG/100 ML VIAL IVPB SCH ×3 (10:35→23:09)
[2021-08-12] MEDS: FUROSEMIDE 40 MG/4 ML INJECTABLE VIAL IVPUSH SCH (13:55)
[2021-08-12] MEDS: NOREPINEPHRINE BITARTRATE 16,000 MCG in SODIUM CHLORIDE 484 ML IV SCH (19:14)
[2021-08-12] MEDS: CHLORHEXIDINE GLUCONATE 4% CLEANSER FOR DECOLONIZATION TP SCH (22:11)
[2021-08-13] MEDS ORDERED: PIPERACILLIN/TAZOBACTAM 2.25 GM VIAL IVPB ONE ×3 (02:41→17:12)
[2021-08-13] MEDS ORDERED: DEXTROSE 5%-WATER - 50 ML IVPB ONE ×3 (02:41→17:13)
[2021-08-13] MEDS: HEPARIN NA (PORCINE) 5,000 UNITS/ML 1ML VIAL IVPUSH PRN (02:46)
[2021-08-13] MEDS: PIPERACILLIN/TAZOB 2.25 GM 2.25 GM in DEXTROSE 5%-WATER - 50 ML IVPB SCH ×3 (02:46→17:17)
[2021-08-13] MEDS: FUROSEMIDE 40 MG/4 ML INJECTABLE VIAL IVPUSH SCH ×2 (05:49→14:59)
[2021-08-13 06:51] LABS: HEMATOCRIT 28.2 % (32.4-45.2); MEAN CELL VOLUME 93.6 fl (80-96); MEAN PLT VOLUME 8.3 fl (7.5-11.1); PLATELET COUNT 362 10^3/uL (134-434); RBC 3.01 M/mm3 (3.60-5.2); RDW 16.1 % (11.6-15.6)
[2021-08-13 07:31] LABS: ARTERIAL BLOOD GAS PO2 59.2 mmHg (80-100)
[2021-08-13 07:33] LABS: ARTERIAL BLD GAS O2 SATURATION 86.5 % (95-98); ARTERIAL BLOOD GAS pH 7.298 (7.350-7.450)
[2021-08-13 07:51] LABS: VENT MODE V-A/C
[2021-08-13 07:52] LABS: VENT RATE 28
[2021-08-13] MEDS: ALBUTEROL SO4 0.083% IH SOL 2.5 MG/3 ML VIAL.NEB. NEB PRN ×4 (08:15→20:22)
[2021-08-13] MEDS: ACETYLCYSTEINE 20% 200MG/ML 4 ML VIAL *FOR ORAL / INH USE ONLY NEB SCH ×4 (08:15→20:22)
[2021-08-13 08:21] LABS: BLOOD UREA NITROGEN 38.2 mg/dL (7-18); CALCIUM 8.1 mg/dL (8.5-10.1); CREATININE 1.7 mg/dL (0.55-1.3); MAGNESIUM 1.7 mg/dL (1.8-2.4); PHOSPHOROUS 4.8 mg/dL (2.5-4.9)
[2021-08-13] MEDS: AMINO ACIDS/PROTEIN HYDROLYS 30 ML LIQUID.PKT NGT SCH ×2 (08:36→17:11)
[2021-08-13] MEDS: POLYETHYLENE GLYCOL (HEALTHYLAX) 3350 17 GM PACKET GT SCH ×2 (09:19→21:39)
[2021-08-13] MEDS: PANTOPRAZOLE SODIUM 40 MG VIAL IVPUSH SCH (09:19)
[2021-08-13] MEDS: ASPIRIN 81 MG CHEWABLE TABLETS PO SCH (09:19)
[2021-08-13] MEDS: FENTANYL NS IVPB 500 MCG/100 ML BAG IVPB SCH ×2 (09:20→20:00)
[2021-08-13] MEDS: HEPARIN INFUSION - 25,000 UNITS/500 ML INFUS.BAG IVPB SCH ×2 (09:30→13:45)
[2021-08-13] MEDS: NOREPINEPHRINE BITARTRATE 16,000 MCG in SODIUM CHLORIDE 484 ML IV SCH (11:30)
[2021-08-13] MEDS: CHLORHEXIDINE GLUCONATE 4% CLEANSER FOR DECOLONIZATION TP SCH (21:39)
[2021-08-13] MEDS: PROPOFOL 1,000,000 MCG/100 ML VIAL IVPB SCH (22:00)
[2021-08-14] MEDS ORDERED: PIPERACILLIN/TAZOBACTAM 2.25 GM VIAL IVPB ONE ×2 (00:39→09:01)
[2021-08-14] MEDS ORDERED: DEXTROSE 5%-WATER - 50 ML IVPB ONE ×2 (00:41→09:01)
[2021-08-14] MEDS: PIPERACILLIN/TAZOB 2.25 GM 2.25 GM in DEXTROSE 5%-WATER - 50 ML IVPB SCH ×2 (01:29→09:16)
[2021-08-14] MEDS: FUROSEMIDE 40 MG/4 ML INJECTABLE VIAL IVPUSH SCH (05:56)
[2021-08-14 06:45] LABS: ARTERIAL BLD GAS O2 SATURATION 79.8 % (95-98); ARTERIAL BLOOD GAS BASE EXCESS 0.6 mmol/L (-2-2); ARTERIAL BLOOD GAS PO2 48.8 mmHg (80-100); ARTERIAL BLOOD GAS pH 7.305 (7.350-7.450)
[2021-08-14 06:50] LABS: VENT MODE V-A/C; VENT RATE 28
[2021-08-14 07:16] LABS: HEMATOCRIT 28.8 % (32.4-45.2); HEMOGLOBIN 9.2 GM/dL (10.7-15.3); MCH 30.8 pg (25.7-33.7); MCHC 32.1 g/dl (32.0-36.0); MEAN CELL VOLUME 95.7 fl (80-96); MEAN PLT VOLUME 8.3 fl (7.5-11.1); PLATELET COUNT 433 10^3/uL (134-434); RBC 3.01 M/mm3 (3.60-5.2); RDW 16.2 % (11.6-15.6); WHITE BLOOD COUNT 15.3 K/mm3 (4.0-10.0)
[2021-08-14 07:22] LABS: CALCIUM 8.2 mg/dL (8.5-10.1)
[2021-08-14 07:23] LABS: BLOOD UREA NITROGEN 36.7 mg/dL (7-18); MAGNESIUM 1.6 mg/dL (1.8-2.4)
[2021-08-14 07:26] LABS: CREATININE 1.7 mg/dL (0.55-1.3); PHOSPHOROUS 4.4 mg/dL (2.5-4.9)
[2021-08-14] MEDS: ALBUTEROL SO4 0.083% IH SOL 2.5 MG/3 ML VIAL.NEB. NEB PRN ×2 (07:35→11:25)
[2021-08-14] MEDS: ACETYLCYSTEINE 20% 200MG/ML 4 ML VIAL *FOR ORAL / INH USE ONLY NEB SCH ×2 (07:35→11:25)
[2021-08-14] MEDS ORDERED: POTASSIUM CHLORIDE ORAL LIQUID 20 MEQ/15 ML PO ONE (07:54)
[2021-08-14] MEDS ORDERED: MAGNESIUM SULF 50% (8.12 MEQ/2 ML-1 GM VIAL) IVPB ONE (07:57)
[2021-08-14] MEDS: KCL 10 MEQ IVPB 10 MEQ/100 ML INFUS.BAG IVPB SCH ×3 (08:27→12:30)
[2021-08-14] MEDS: HEPARIN INFUSION - 25,000 UNITS/500 ML INFUS.BAG IVPB SCH (08:33)
[2021-08-14 08:35] LABS: ANISOCYTOSIS 1+; MACROCYTOSIS 1+; PLATELET ESTIMATE NORMAL
[2021-08-14] MEDS: PROPOFOL 1,000,000 MCG/100 ML VIAL IVPB SCH ×2 (09:13→12:18)
[2021-08-14] MEDS: PANTOPRAZOLE SODIUM 40 MG VIAL IVPUSH SCH (09:13)
[2021-08-14 10:14] VITALS: TEMP 100.8
[2021-08-14] MEDS ORDERED: DEXMEDETOMIDINE IN 0.9 % NACL 400 MCG/100 ML VIAL IVPB SCH (11:15)
[2021-08-14] MEDS ORDERED: VECURONIUM BROMIDE 100 MG/100 ML BAG IVPB SCH (11:15)
[2021-08-14] MEDS ORDERED: AMINO ACIDS/PROTEIN HYDROLYS 30 ML LIQUID.PKT NGT SCH (12:00)
[2021-08-14 12:40] VITALS: BP 91/49; PULSE 116
[2021-08-14] MEDS: ASPIRIN 81 MG CHEWABLE TABLETS PO SCH (13:27)
[2021-08-14] MEDS ORDERED: PIPERACILLIN/TAZOB 3.375 GM 3.375 GM in DEXTROSE 5%-WATER - 50 ML IVPB SCH (18:00)
== END 2021-08-14 12:57 | disposition expired | DRG 870 ==
LOC: JER 08:35 → JERBED 09:45 → JICU 13:22
PROVIDERS: ADMIT Internal Medicine; ATTEND Internal Medicine
PROC: 5A1955Z Respiratory Ventilation, Greater than 96 Consecutive Hours (ICD-10-PCS; principal; 2021-08-02)
PROC: 05HM33Z Insertion of Infusion Device into Right Internal Jugular Vein, Percutaneous Approach (ICD-10-PCS; 2021-08-02)
PROC: B543ZZA Ultrasonography of Right Jugular Veins, Guidance (ICD-10-PCS; 2021-08-02)
PROC: 05H633Z Insertion of Infusion Device into Left Subclavian Vein, Percutaneous Approach (ICD-10-PCS; 2021-08-02)
DX: A41.89 Other specified sepsis (principal); J96.01 Acute respiratory failure with hypoxia; J96.02 Acute respiratory failure with hypercapnia; R65.21 Severe sepsis with septic shock; E87.2 Acidosis; E87.0 Hyperosmolality and hypernatremia; N17.9 Acute kidney failure, unspecified; N39.0 Urinary tract infection, site not specified; Z68.41 Body mass index [BMI] 40.0-44.9, adult; I82.4Z1 Acute embolism and thrombosis of unspecified deep veins of right distal lower extremity; J98.11 Atelectasis; I10 Essential (primary) hypertension; G40.909 Epilepsy, unspecified, not intractable, without status epilepticus; I46.9 Cardiac arrest, cause unspecified; E87.6 Hypokalemia; R94.5 Abnormal results of liver function studies; R59.1 Generalized enlarged lymph nodes; E03.9 Hypothyroidism, unspecified; D72.829 Elevated white blood cell count, unspecified; E66.01 Morbid (severe) obesity due to excess calories; E87.70 Fluid overload, unspecified; Z86.718 Personal history of other venous thrombosis and embolism; I49.01 Ventricular fibrillation; Z85.038 Personal history of other malignant neoplasm of large intestine; Z66 Do not resuscitate
CPT/HCPCS: 36415; 36600; 70450-TC; 71045-TC-FY; 71275-TC; 74018-TC-FY; 80048; 80053; 81003; 82436; 82550; 82553; 82570; 82803; 82962; 83605; 83735; 84100; 84133; 84300; 84439; 84443; 84484; 85025; 85027; 85610; 85730; 87040; 87070; 87086; 87205; 87804; 93005; 93010; 93306-TC; 93970-TC; 94002; 94640; 99285-25; C9803; J0131; J1644; Q9967; U0003; U0005